=== PATIENT | male | born 1995 | race Two or more races ===

== ENCOUNTER 2018-06-02 16:55 | Emergency (ER) | payer BC, OTHER ==
[~2018-06-02] VITALS: Ht 182.9 cm; Wt 63.5 kg
[2018-06-02] MEDS ORDERED: GABA-532 PO (17:25)
[2018-06-02] MEDS ORDERED: CLON0.1T PO (17:25)
[2018-06-02] MEDS ORDERED: LEVE500T9 PO (17:25)
[2018-06-02] MEDS ORDERED: QUET100T PO (17:25)
--- NOTE | 2018-06-02 18:34 | NUR ---
Patient discharged to home in stable conditon with staff from detox center. Written and verbal after care instructions given. Patient verbalizes understanding of instructions.
== END 2018-06-02 18:35 | disposition home or self-care (01) ==
LOC: ER 16:57
DX: Z00.00 Encounter for general adult medical examination without abnormal findings (principal); Z79.899 Other long term (current) drug therapy
CPT/HCPCS: A4663

== ENCOUNTER 2018-06-22 20:27 | Emergency (ER) | payer BC, OTHER ==
[~2018-06-22] VITALS: Ht 185.4 cm; Wt 79.4 kg
[~2018-06-22 20:27] MED LIST: CLON0.1T PO; GABA-532 PO; LEVE500T9 PO; QUET100T PO
--- NOTE | 2018-06-22 20:39 | NUR ---
Dr Curry into eval patient
[2018-06-22] MEDS ORDERED: MORPHINE SULFATE 4 MG/1 ML DISP.SYRIN ONE (20:46)
[2018-06-22] MEDS ORDERED: IBUP-1957 PO (20:47)
[2018-06-22] MEDS ORDERED: GABA-534 PO (20:47)
[2018-06-22] MEDS ORDERED: QUET200T PO (20:47)
[2018-06-22] MEDS ORDERED: FOLI1TAB16 PO (20:47)
[2018-06-22] MEDS ORDERED: THIA100T13 PO (20:47)
[2018-06-22] MEDS ORDERED: OLAN5TAB3 PO (20:47)
[2018-06-22] MEDS: MORPHINE SULFATE 4 MG/1 ML DISP.SYRIN IM ONE ×2 (20:47→20:48)
[2018-06-22] MEDS ORDERED: TRAZ-214 PO (20:47)
[2018-06-22] MEDS ORDERED: OLAN15TA3 PO (20:47)
[2018-06-22] MEDS ORDERED: MULT1TAB73 PO (20:47)
--- NOTE | 2018-06-22 20:55 | NUR ---
Patient out for ct scan via wheelchair with no distress noted
[2018-06-22 21:03] LABS: BASOPHILS # (AUTO) 0.1 K/uL (0.0-8.0); BASOPHILS % (AUTO) 0.7 % (0.0-2.0); EOSINOPHILS # (AUTO) 0.2 K/uL (0.0-0.7); EOSINOPHILS % (AUTO) 1.6 % (0.0-7.0); HEMATOCRIT 37.4 % (36.7-47.1); HEMOGLOBIN 12.1 g/dL (12.5-16.3); LYMPHOCYTES # (AUTO) 2.4 K/uL (20.0-40.0); LYMPHOCYTES % (AUTO) 25.1 % (20.5-51.5); MEAN CORPUSCULAR HEMOGLOBIN 25.9 uug (23.8-33.4); MEAN CORPUSCULAR HGB CONC 32 g/dL (32.5-36.3); MEAN CORPUSCULAR VOLUME 80.1 fL (73.0-96.2); MONOCYTES # (AUTO) 1.1 K/uL (2.0-10.0); MONOCYTES % (AUTO) 11.7 % (0.0-11.0); NEUTROPHILS # (AUTO) 5.8 K/uL (1.8-8.9); NEUTROPHILS % (AUTO) 60.9 % (38.5-71.5); PLATELET COUNT (AUTO) 245 K/uL (152-348); RED BLOOD CELL COUNT(AUTO) 4.67 MIL/uL (4.06-5.63); WHITE BLOOD COUNT (AUTO) 9.5 K/uL (3.6-10.2)
--- NOTE | 2018-06-22 21:06 | NUR ---
Patient back from ct scan with no distress noted
[2018-06-22 21:13] LABS: POTASSIUM 4.2 mmol/L (3.5-5.1)
--- NOTE | 2018-06-22 21:29 | NUR ---
Patient discharged to home in stable conditon with staff member from rehab facility were patient is admitted to. Written and verbal after care instructions given. Patient verbalizes understanding of instructions. Walked out of ER with no distress noted
[2018-06-22 21:30] VITALS: BP 140/80
== END 2018-06-22 21:31 | disposition home or self-care (01) ==
LOC: ER 20:28
DX: S09.90XA Unspecified injury of head, initial encounter (principal); R55 Syncope and collapse; F11.10 Opioid abuse, uncomplicated; F15.10 Other stimulant abuse, uncomplicated; F17.290 Nicotine dependence, other tobacco product, uncomplicated; Z79.891 Long term (current) use of opiate analgesic; Z79.1 Long term (current) use of non-steroidal anti-inflammatories (NSAID); Z79.899 Other long term (current) drug therapy; X58.XXXA Exposure to other specified factors, initial encounter; Y93.89 Activity, other specified; Y92.89 Other specified places as the place of occurrence of the external cause; Y99.8 Other external cause status
CPT/HCPCS: 36415; 70450; 80048; 85025; 93005; 96372; 99284; 99406; J2270; A4663